=== PATIENT | male | born 1955 | race Two or more races ===

== ENCOUNTER 2022-02-07 17:27 | Emergency (ER) | payer OTHER ==
[~2022-02-07] VITALS: Ht 167.6 cm; Wt 99.8 kg
[2022-02-07 20:38] LABS: Basophils # (auto) 0.1 10 ^3/uL (0-0.2); Basophils % (auto) 1.7 % (0.0-2.0); Eosinophils # (auto) 0.3 10 ^3/uL (0-0.8); Eosinophils % (auto) 4.9 % (0.0-7.0); Hematocrit 38.9 % (41.0-53.0); Hemoglobin 12.5 g/dL (13.5-17.5); Lymphocytes # (auto) 1.2 10 ^3/uL (0.4-5.4); Lymphocytes % (auto) 21.5 % (10.0-50.0); Mean Corpuscular Hemoglobin 30.5 pg (28.0-32.0); Mean Corpuscular Hgb Conc. 32.1 g/dL (32.0-36.0); Mean Corpuscular Volume 94.9 fL (80.0-100.0); Monocytes # (auto) 0.5 10 ^3/uL (0-1.3); Monocytes % (auto) 9.3 % (0.0-12.0); Neutrophils # (auto) 3.6 10 ^3/uL (1.6-8.6); Neutrophils % (auto) 62.6 % (37.0-80.0); Red Blood Cells 4.09 10^6/uL (4.5-5.90); Red Cell Distribution Width 14.6 % (11.8-14.3); White Blood Cell 5.7 10^3/uL (4.4-10.8)
[2022-02-07 20:47] LABS: Albumin 3.7 g/dL (3.4-5.0); Calcium 8.6 mg/dL (8.5-10.1); Potassium 5.1 mmol/L (3.5-5.1)
[2022-02-07 20:50] LABS: BUN/Creatinine Ratio 6.3; Bilirubin, Total 0.5 mg/dL (0.2-1.0); CRP High Sensitivity 0.16 mg/dL (< 0.3); Total Protein 7.6 g/dL (6.4-8.2)
[2022-02-07] MEDS ORDERED: HYDR-4902 PO (21:34)
[2022-02-07 23:39] VITALS: BP 132/67
== END 2022-02-07 23:57 | disposition home or self-care (01) ==
LOC: ER 17:27 → EDBD 17:27 → ER 23:57
DX: R58 Hemorrhage, not elsewhere classified (principal); I12.0 Hypertensive chronic kidney disease with stage 5 chronic kidney disease or end stage renal disease; N18.6 End stage renal disease; Z99.2 Dependence on renal dialysis; Z79.899 Other long term (current) drug therapy
CPT/HCPCS: 36415; 73130; 80053; 85025; 86141

== ENCOUNTER 2023-08-05 15:24 | Inpatient (IN) | payer MEDICARE, MEDICAID ==
[~2023-08-05] VITALS: Ht 162.6 cm; Wt 102.4 kg
[~2023-08-05 15:24] MED LIST: HYDR-4902 PO
[2023-08-05 17:03] LABS: Basophils # (auto) 0.1 10 ^3/uL (0-0.2); Basophils % (auto) 0.9 % (0.0-2.0); Eosinophils # (auto) 0.2 10 ^3/uL (0-0.8); Eosinophils % (auto) 3.9 % (0.0-7.0); Hematocrit 34.6 % (41.0-53.0); Hemoglobin 11.1 g/dL (13.5-17.5); Lymphocytes # (auto) 0.8 10 ^3/uL (0.4-5.4); Lymphocytes % (auto) 12.4 % (10.0-50.0); Mean Corpuscular Hemoglobin 30.6 pg (28.0-32.0); Mean Corpuscular Volume 95.5 fL (80.0-100.0); Monocytes # (auto) 0.6 10 ^3/uL (0-1.3); Neutrophils # (auto) 4.6 10 ^3/uL (1.6-8.6); Neutrophils % (auto) 72.8 % (37.0-80.0); Nucleated Red Blood Cells % 0.1 %; Red Blood Cells 3.63 10^6/uL (4.5-5.90); Red Cell Distribution Width 14.6 % (11.8-14.3); White Blood Cell 6.3 10^3/uL (4.4-10.8)
[2023-08-05] MEDS ORDERED: VANCOMYCIN 1GM/200ML 250 ML IV ONE (17:45)
[2023-08-05] MEDS ORDERED: PIPERACILLIN-TAZOB 3.375GM 100 ML IV ONE ×2 (17:45→19:30)
[2023-08-05 17:58] LABS: Alanine Aminotransferase 15 U/L (7-40); Alkaline Phosphatase 122 U/L (46-116); Anion Gap 12 (5-15); Aspartate Aminotransferase 24 U/L (13-40); BUN/Creatinine Ratio 7.7 (10.0-20.0); Blood Urea Nitrogen 35 mg/dL (9-23); Calcium 8.7 mg/dL (8.5-10.1); Carbon Dioxide 26 mmol/L (20-30); Chloride 101 mmol/L (98-107); Glucose 190 mg/dL (74-106); Potassium 3.7 mmol/L (3.5-5.1); Sodium 139 mmol/L (136-145)
[2023-08-05 17:59] LABS: Albumin 4.4 g/dL (3.2-4.8); Total Protein 7.6 g/dL (5.7-8.2)
[2023-08-05 18:16] LABS: Erythrocyte Sedimentation Rate 29 mm/hr (0-20)
[2023-08-05] MEDS ORDERED: SODIUM CHLORIDE 0.9% 1,000 ML IV ONE (19:00)
[2023-08-05] MEDS ORDERED: ONDANSETRON HCL 4 MG/2 ML VIAL IV PRN (20:15)
[2023-08-05] MEDS ORDERED: VANCOMYCIN PER PHARMACY 0 MG IV SCH (20:15)
[2023-08-05] MEDS ORDERED: DOCUSATE SOD 100 MG CAP PO PRN (20:15)
[2023-08-05] MEDS ORDERED: DEXTROSE (50%) 50ML SYRG IV PRN (20:15)
[2023-08-05] MEDS ORDERED: CEFEPIME 2GM/50ML NS 50 ML IV ONE ×2 (21:30)
[2023-08-05] MEDS ORDERED: VANCOMYCIN 1GM/200ML 200 ML IV ONE (22:30)
[2023-08-06] MEDS: InsuLIN REG 1unit/0.01ml Soln (100units/ml) SC SCH ×5 (00:48→21:32)
[2023-08-06] MEDS: ACCU-CHEK COMFORT CURVE STRIP VI SCH ×5 (00:48→21:32)
[2023-08-06] MEDS: SODIUM CHLORIDE 0.9% 1,000 ML IV SCH ×4 (02:55→21:15)
[2023-08-06] MEDS: MORPHINE SULFATE INJ 2 MG/ml SYRG IV PRN ×3 (05:28→18:20)
[2023-08-06 06:08] LABS: Basophils # (auto) 0.1 10 ^3/uL (0-0.2); Eosinophils # (auto) 0.3 10 ^3/uL (0-0.8); Eosinophils % (auto) 4.9 % (0.0-7.0); Hematocrit 31.4 % (41.0-53.0); Lymphocytes # (auto) 0.7 10 ^3/uL (0.4-5.4); Lymphocytes % (auto) 14.1 % (10.0-50.0); Mean Corpuscular Hgb Conc. 31.8 g/dL (32.0-36.0); Mean Corpuscular Volume 94.4 fL (80.0-100.0); Monocytes # (auto) 0.5 10 ^3/uL (0-1.3); Neutrophils # (auto) 3.7 10 ^3/uL (1.6-8.6); Nucleated Red Blood Cells % 0.1 %; Red Blood Cells 3.33 10^6/uL (4.5-5.90); Red Cell Distribution Width 14.2 % (11.8-14.3); White Blood Cell 5.2 10^3/uL (4.4-10.8)
[2023-08-06 06:22] LABS: Alanine Aminotransferase 14 U/L (7-40); Albumin 3.9 g/dL (3.2-4.8); Alkaline Phosphatase 112 U/L (46-116); Anion Gap 14 (5-15); Aspartate Aminotransferase 20 U/L (13-40); BUN/Creatinine Ratio 8.9 (10.0-20.0); Blood Urea Nitrogen 44 mg/dL (9-23); Carbon Dioxide 22 mmol/L (20-30); Chloride 105 mmol/L (98-107); Glucose 180 mg/dL (74-106); Potassium 3.7 mmol/L (3.5-5.1); Sodium 141 mmol/L (136-145)
[2023-08-06 06:23] LABS: Bilirubin, Total 0.9 mg/dL (0.2-1.0); Total Protein 6.7 g/dL (5.7-8.2)
[2023-08-06] MEDS: CEFEPIME 2GM/50ML NS 50 ML IV SCH ×3 (08:10→21:32)
[2023-08-06] MEDS: ENOXAPARIN SOD 30 MG/0.3 ML SYRINGE SC SCH (10:07)
[2023-08-06 10:48] VITALS: BP 150/61; PULSE 65; RESP 18; TEMP 98; O2SAT 98
[2023-08-06 11:52] LABS: Phosphorus 2.8 mg/dL (2.4-5.1)
[2023-08-06 12:18] VITALS: BP 150/61; PULSE 65; RESP 18; TEMP 98
[2023-08-06 12:32] VITALS: PULSE 65; RESP 18; O2SAT 98
[2023-08-06 16:59] VITALS: BP 140/65; PULSE 58; RESP 20; TEMP 98.1; O2SAT 98
[2023-08-06 17:33] LABS: Amphetamine Screen, Urine Neg (NEGATIVE); Barbiturate Scree,Urine Neg (NEGATIVE); Benzodiazephine Screen, Urine Neg (NEGATIVE); Cocaine Screen, Urine Neg (NEGATIVE); Opiate Scree,Urine Neg (NEGATIVE); Phencyclidine Screen, Urine Neg (NEGATIVE)
[2023-08-06 17:34] LABS: Cannabinoid Screen, Urine Neg (NEGATIVE); Creatinine, Urine 103.78 mg/dL (30.0-125.0)
[2023-08-06 20:00] VITALS: PULSE 62; RESP 16; O2SAT 99
[2023-08-07] VITALS (7 sets, daily range): BP systolic 106–158; BP diastolic 46–70; PULSE 54–106; RESP 15–18; TEMP 97.5–98.4; O2SAT 95–100
[2023-08-07] MEDS: MORPHINE SULFATE INJ 2 MG/ml SYRG IV PRN ×2 (00:23→09:17)
[2023-08-07] MEDS: SODIUM CHLORIDE 0.9% 1,000 ML IV SCH ×3 (05:35→22:15)
[2023-08-07 06:09] LABS: Hematocrit 30.3 % (41.0-53.0); Hemoglobin 9.8 g/dL (13.5-17.5)
[2023-08-07] MEDS: CEFEPIME 2GM/50ML NS 50 ML IV SCH (06:10)
[2023-08-07] MEDS: ACCU-CHEK COMFORT CURVE STRIP VI SCH ×4 (06:15→22:00)
[2023-08-07] MEDS: InsuLIN REG 1unit/0.01ml Soln (100units/ml) SC SCH ×4 (06:15→22:00)
[2023-08-07 06:26] LABS: Chloride 105 mmol/L (98-107); Potassium 4.7 mmol/L (3.5-5.1); Sodium 139 mmol/L (136-145)
[2023-08-07 06:27] LABS: Anion Gap 13 (5-15); Calcium 8.1 mg/dL (8.5-10.1); Carbon Dioxide 21 mmol/L (20-30)
[2023-08-07 06:32] LABS: BUN/Creatinine Ratio 11.3 (10.0-20.0); Glucose 108 mg/dL (74-106)
[2023-08-07 06:33] LABS: Blood Urea Nitrogen 64 mg/dL (9-23)
[2023-08-07] MEDS ORDERED: SODIUM CHL 0.9% 1000 ML BAG XX ONE (07:00)
[2023-08-07] MEDS: ENOXAPARIN SOD 30 MG/0.3 ML SYRINGE SC SCH (09:17)
[2023-08-07] MEDS ORDERED: VANCOMYCIN 500 MG in D5W 5% 100 ML IV ONE (13:00)
[2023-08-07 14:18] LABS: INR 1.21 (0.9-1.15); Prothrombin Time 12.5 sec (9.3-11.8)
[2023-08-07] MEDS ORDERED: EPOETIN ALFA-EPBX 4,000 UNIT/ML VIAL SC ONE (21:00)
[2023-08-08] VITALS (7 sets, daily range): BP systolic 114–143; BP diastolic 56–69; PULSE 62–75; RESP 14–20; TEMP 97.7–98.2; O2SAT 93–98
[2023-08-08] MEDS: MORPHINE SULFATE INJ 2 MG/ml SYRG IV PRN ×3 (00:28→23:20)
[2023-08-08] MEDS: SODIUM CHLORIDE 0.9% 1,000 ML IV SCH ×3 (05:48→23:15)
[2023-08-08] MEDS: ACCU-CHEK COMFORT CURVE STRIP VI SCH ×4 (06:56→22:00)
[2023-08-08] MEDS: InsuLIN REG 1unit/0.01ml Soln (100units/ml) SC SCH ×4 (06:56→22:42)
[2023-08-08] MEDS: ENOXAPARIN SOD 30 MG/0.3 ML SYRINGE SC SCH (10:16)
[2023-08-08] MEDS: CEFEPIME 2GM/50ML NS 50 ML IV SCH (10:17)
[2023-08-08] MEDS ORDERED: VANCOMYCIN 1GM/200ML 200 ML IV ONE (15:00)
[2023-08-09] MEDS: ACCU-CHEK COMFORT CURVE STRIP VI SCH ×4 (05:04→22:00)
[2023-08-09] MEDS: InsuLIN REG 1unit/0.01ml Soln (100units/ml) SC SCH ×4 (05:04→22:39)
[2023-08-09 05:15] VITALS: BP 118/59; PULSE 69; RESP 20; TEMP 98.5; O2SAT 93
[2023-08-09 06:58] LABS: Chloride 102 mmol/L (98-107); Potassium 5.5 mmol/L (3.5-5.1); Sodium 135 mmol/L (136-145)
[2023-08-09 06:59] LABS: Anion Gap 11 (5-15); Carbon Dioxide 22 mmol/L (20-30)
[2023-08-09 07:05] LABS: BUN/Creatinine Ratio 9.2 (10.0-20.0); Blood Urea Nitrogen 56 mg/dL (9-23); Glucose 104 mg/dL (74-106)
[2023-08-09] MEDS: SODIUM CHLORIDE 0.9% 1,000 ML IV SCH ×2 (07:35→15:55)
[2023-08-09 08:00] VITALS: BP 132/60; PULSE 62; PULSE 70; RESP 14; RESP 18; TEMP 98; O2SAT 98
[2023-08-09 09:00] VITALS: BP 110/64; PULSE 64; RESP 18; TEMP 97.5; O2SAT 98
[2023-08-09] MEDS: CEFEPIME 2GM/50ML NS 50 ML IV SCH (10:18)
[2023-08-09] MEDS: ENOXAPARIN SOD 30 MG/0.3 ML SYRINGE SC SCH (10:18)
[2023-08-09] MEDS: MORPHINE SULFATE INJ 2 MG/ml SYRG IV PRN ×2 (11:14→23:01)
[2023-08-09 13:00] VITALS: BP 131/64; PULSE 74; RESP 18; TEMP 98.3; O2SAT 96
[2023-08-09 16:56] VITALS: BP 128/76; PULSE 73; RESP 20; TEMP 97.8; O2SAT 95
[2023-08-09] MEDS ORDERED: DONE5TAB80 PO (20:31)
[2023-08-09] MEDS ORDERED: AMLO1TAB22 PO (20:32)
[2023-08-09] MEDS ORDERED: SEVE800T8 PO (20:33)
[2023-08-09] MEDS ORDERED: APIX5TAB PO (20:34)
[2023-08-09] MEDS ORDERED: FURO20TA3 PO (20:39)
[2023-08-09] MEDS ORDERED: ATOR20TA50 PO (20:49)
[2023-08-09] MEDS ORDERED: BRIM0.2S2 OP (21:02)
[2023-08-09] MEDS ORDERED: DORZ2SOL18 EACHEYE (21:04)
[2023-08-09] MEDS ORDERED: LATA0.008 EACHEYE (21:15)
[2023-08-09 22:00] VITALS: BP 137/64; PULSE 68; RESP 19; TEMP 97.3; O2SAT 98
[2023-08-10] MEDS: SODIUM CHLORIDE 0.9% 1,000 ML IV SCH ×2 (00:15→08:35)
[2023-08-10 05:00] VITALS: BP 128/70; PULSE 62; RESP 17; TEMP 97.4; O2SAT 92
[2023-08-10 06:30] LABS: Basophils # (auto) 0.1 10 ^3/uL (0-0.2); Basophils % (auto) 1.3 % (0.0-2.0); Eosinophils # (auto) 0.4 10 ^3/uL (0-0.8); Eosinophils % (auto) 7.3 % (0.0-7.0); Hematocrit 28.6 % (41.0-53.0); Hemoglobin 9.4 g/dL (13.5-17.5); Lymphocytes # (auto) 0.5 10 ^3/uL (0.4-5.4); Mean Corpuscular Hemoglobin 31.4 pg (28.0-32.0); Mean Corpuscular Hgb Conc. 32.8 g/dL (32.0-36.0); Mean Corpuscular Volume 95.6 fL (80.0-100.0); Monocytes # (auto) 0.6 10 ^3/uL (0-1.3); Monocytes % (auto) 12.8 % (0.0-12.0); Neutrophils # (auto) 3.4 10 ^3/uL (1.6-8.6); Neutrophils % (auto) 68.6 % (37.0-80.0); Red Blood Cells 2.99 10^6/uL (4.5-5.90); Red Cell Distribution Width 14.3 % (11.8-14.3)
[2023-08-10 06:39] LABS: Alkaline Phosphatase 79 U/L (46-116); Anion Gap 10 (5-15); BUN/Creatinine Ratio 9.4 (10.0-20.0); Blood Urea Nitrogen 48 mg/dL (9-23); Carbon Dioxide 26 mmol/L (20-30); Chloride 100 mmol/L (98-107); Glucose 118 mg/dL (74-106); Potassium 4.7 mmol/L (3.5-5.1); Sodium 136 mmol/L (136-145)
[2023-08-10 06:40] LABS: Albumin 3.8 g/dL (3.2-4.8); Aspartate Aminotransferase 13 U/L (13-40); Bilirubin, Total 0.9 mg/dL (0.2-1.0); Total Protein 6.8 g/dL (5.7-8.2)
[2023-08-10 06:49] LABS: Alanine Aminotransferase < 9 U/L (7-40)
[2023-08-10] MEDS: InsuLIN REG 1unit/0.01ml Soln (100units/ml) SC SCH ×4 (07:00→22:00)
[2023-08-10] MEDS: ACCU-CHEK COMFORT CURVE STRIP VI SCH ×4 (08:18→22:48)
[2023-08-10 08:44] VITALS: BP 138/54; PULSE 67; RESP 17; TEMP 98; O2SAT 96
[2023-08-10] MEDS: CEFEPIME 2GM/50ML NS 50 ML IV SCH (08:49)
[2023-08-10] MEDS: ENOXAPARIN SOD 30 MG/0.3 ML SYRINGE SC SCH (08:49)
[2023-08-10] MEDS: MORPHINE SULFATE INJ 2 MG/ml SYRG IV PRN ×2 (08:49→22:37)
[2023-08-10 12:45] VITALS: BP 126/54; PULSE 62; RESP 15; TEMP 97.8; O2SAT 97
[2023-08-10] MEDS: HEPARIN SODIUM (PORCINE) 5000 UNITS/ML 1ML VIAL SC SCH ×2 (14:26→22:32)
[2023-08-10] MEDS: FUROSEMIDE 20 MG TAB PO SCH ×2 (14:26→22:39)
[2023-08-10] MEDS: SEVELAMER 800 MG TAB PO SCH ×2 (14:26→18:00)
[2023-08-10 16:44] VITALS: BP 133/62; PULSE 66; RESP 16; TEMP 98.2; O2SAT 97
[2023-08-10] MEDS: LATANOPROST 0.005 % OPTH(EYE) SOL 2.5ML EACHEYE SCH (18:00)
[2023-08-10 20:00] VITALS: BP 129/66; PULSE 63; RESP 18; TEMP 97.8; O2SAT 96
[2023-08-10 22:00] VITALS: BP 140/80; PULSE 57; RESP 18; TEMP 97.8; O2SAT 97
[2023-08-10] MEDS: DORZOLAM-TIMOLOL(2/0.5%) OPTH(EYE) SOLN 10ML EACHEYE SCH (22:00)
[2023-08-10] MEDS: DONEPEZIL HYDROCHLORIDE 5 MG TAB PO SCH (22:41)
[2023-08-11] VITALS (7 sets, daily range): BP systolic 102–147; BP diastolic 57–75; PULSE 60–67; RESP 14–18; TEMP 97.2–98.1; O2SAT 96–99
[2023-08-11] MEDS: FUROSEMIDE 20 MG TAB PO SCH ×3 (06:00→21:02)
[2023-08-11] MEDS: HEPARIN SODIUM (PORCINE) 5000 UNITS/ML 1ML VIAL SC SCH ×3 (06:31→21:14)
[2023-08-11] MEDS: InsuLIN REG 1unit/0.01ml Soln (100units/ml) SC SCH ×2 (06:32→11:30)
[2023-08-11] MEDS: ACCU-CHEK COMFORT CURVE STRIP VI SCH ×2 (06:32→11:40)
[2023-08-11] MEDS ORDERED: SODIUM CHL 0.9% 1000 ML BAG XX ONE (07:00)
[2023-08-11] MEDS: SEVELAMER 800 MG TAB PO SCH ×3 (07:56→21:01)
[2023-08-11] MEDS: DORZOLAM-TIMOLOL(2/0.5%) OPTH(EYE) SOLN 10ML EACHEYE SCH ×2 (10:00→22:00)
[2023-08-11] MEDS: ATORVASTATIN 20 MG TAB PO SCH (10:48)
[2023-08-11] MEDS: CEFEPIME 2GM/50ML NS 50 ML IV SCH (10:48)
[2023-08-11] MEDS: PANTOPRAZOLE 40 MG TAB PO SCH (10:48)
[2023-08-11] MEDS: amLODIPine BESYLATE 5 MG TAB PO SCH (10:48)
[2023-08-11] MEDS: MORPHINE SULFATE INJ 2 MG/ml SYRG IV PRN ×2 (12:23→21:05)
[2023-08-11] MEDS: LATANOPROST 0.005 % OPTH(EYE) SOL 2.5ML EACHEYE SCH (18:00)
[2023-08-11] MEDS ORDERED: EPOETIN ALFA-EPBX 4,000 UNIT/ML VIAL SC ONE (21:00)
[2023-08-11] MEDS: DONEPEZIL HYDROCHLORIDE 5 MG TAB PO SCH (21:01)
[2023-08-12] VITALS (7 sets, daily range): BP systolic 96–132; BP diastolic 57–67; PULSE 52–76; RESP 14–19; TEMP 97.3–97.7; O2SAT 92–98
[2023-08-12] MEDS: MORPHINE SULFATE INJ 2 MG/ml SYRG IV PRN ×4 (03:36→21:13)
[2023-08-12] MEDS: FUROSEMIDE 20 MG TAB PO SCH ×3 (06:25→21:10)
[2023-08-12] MEDS: HEPARIN SODIUM (PORCINE) 5000 UNITS/ML 1ML VIAL SC SCH ×3 (06:31→21:21)
[2023-08-12] MEDS: SEVELAMER 800 MG TAB PO SCH ×3 (08:04→18:03)
[2023-08-12] MEDS: DORZOLAM-TIMOLOL(2/0.5%) OPTH(EYE) SOLN 10ML EACHEYE SCH ×2 (09:40→22:00)
[2023-08-12] MEDS ORDERED: levoFLOXacin 500 MG TAB PO ONE ×2 (10:00→11:00)
[2023-08-12] MEDS ORDERED: levoFLOXacin 250 MG TAB PO ONE (10:00)
[2023-08-12] MEDS: CEFEPIME 2GM/50ML NS 50 ML IV SCH (10:33)
[2023-08-12] MEDS: amLODIPine BESYLATE 5 MG TAB PO SCH (10:34)
[2023-08-12] MEDS: PANTOPRAZOLE 40 MG TAB PO SCH (10:34)
[2023-08-12] MEDS: ATORVASTATIN 20 MG TAB PO SCH (10:34)
[2023-08-12] MEDS ORDERED: VANCOMYCIN 500 MG in D5W 5% 100 ML IV ONE (15:00)
[2023-08-12] MEDS: LATANOPROST 0.005 % OPTH(EYE) SOL 2.5ML EACHEYE SCH (17:40)
[2023-08-12] MEDS: DONEPEZIL HYDROCHLORIDE 5 MG TAB PO SCH (21:08)
[2023-08-13 05:00] VITALS: BP 132/77; PULSE 63; RESP 18; TEMP 97.6; O2SAT 97
[2023-08-13] MEDS: HEPARIN SODIUM (PORCINE) 5000 UNITS/ML 1ML VIAL SC SCH (05:12)
[2023-08-13] MEDS: FUROSEMIDE 20 MG TAB PO SCH (05:13)
[2023-08-13] MEDS: SEVELAMER 800 MG TAB PO SCH ×2 (07:59→12:25)
[2023-08-13 08:08] VITALS: PULSE 60; RESP 14; O2SAT 98
[2023-08-13 09:00] VITALS: BP 125/60; PULSE 63; RESP 18
[2023-08-13] MEDS: DORZOLAM-TIMOLOL(2/0.5%) OPTH(EYE) SOLN 10ML EACHEYE SCH (09:59)
[2023-08-13] MEDS: CEFEPIME 2GM/50ML NS 50 ML IV SCH (09:59)
[2023-08-13] MEDS: amLODIPine BESYLATE 5 MG TAB PO SCH (10:00)
[2023-08-13] MEDS: PANTOPRAZOLE 40 MG TAB PO SCH (10:00)
[2023-08-13] MEDS: ATORVASTATIN 20 MG TAB PO SCH (10:00)
[2023-08-13] MEDS ORDERED: EPOETIN ALFA-EPBX 4,000 UNIT/ML VIAL IV ONE (10:15)
[2023-08-13 11:02] VITALS: BP 120/56; TEMP 36.4
[2023-08-13 12:00] VITALS: BP 122/58; PULSE 66; RESP 18; TEMP 97.7; O2SAT 97
[2023-08-13 12:25] VITALS: BP 122/58; PULSE 66; RESP 18
[2023-08-13] MEDS: MORPHINE SULFATE INJ 2 MG/ml SYRG IV PRN (12:25)
[2023-08-14] MEDS ORDERED: levoFLOXacin 250 MG TAB PO SCH (10:00)
== END 2023-08-13 13:00 | DRG 602 ==
LOC: ER 15:24 → OVERFLOW 20:20 → CENTRAL 08-06 11:06 → TELE-EAST 08-07 18:26 → EAST 08-07 23:55
PROVIDERS: ADMIT Internal Medicine; ATTEND Nurse Practitioner
DX: L03.115 Cellulitis of right lower limb (principal); N18.6 End stage renal disease; N17.9 Acute kidney failure, unspecified; I12.0 Hypertensive chronic kidney disease with stage 5 chronic kidney disease or end stage renal disease; E11.621 Type 2 diabetes mellitus with foot ulcer; L02.415 Cutaneous abscess of right lower limb; S81.801A Unspecified open wound, right lower leg, initial encounter; D63.1 Anemia in chronic kidney disease; E11.22 Type 2 diabetes mellitus with diabetic chronic kidney disease; E11.610 Type 2 diabetes mellitus with diabetic neuropathic arthropathy; E66.9 Obesity, unspecified; Z96.653 Presence of artificial knee joint, bilateral; E87.5 Hyperkalemia; L03.116 Cellulitis of left lower limb; H40.9 Unspecified glaucoma; R79.82 Elevated C-reactive protein (CRP); F03.90 Unspecified dementia, unspecified severity, without behavioral disturbance, psychotic disturbance, mood disturbance, and anxiety; L97.519 Non-pressure chronic ulcer of other part of right foot with unspecified severity; L97.529 Non-pressure chronic ulcer of other part of left foot with unspecified severity; Z99.2 Dependence on renal dialysis; Z89.519 Acquired absence of unspecified leg below knee; Z68.39 Body mass index [BMI] 39.0-39.9, adult; Z83.3 Family history of diabetes mellitus; Z86.14 Personal history of Methicillin resistant Staphylococcus aureus infection; Z88.1 Allergy status to other antibiotic agents; S81.802A Unspecified open wound, left lower leg, initial encounter; X58.XXXA Exposure to other specified factors, initial encounter; Y93.89 Activity, other specified; Y92.89 Other specified places as the place of occurrence of the external cause; Y99.8 Other external cause status
CPT/HCPCS: 36415; 71045; 73700; 73718; 76881; 80048; 80053; 80202; 80307; 82306; 82565; 82570; 82962; 83036; 83605; 83735; 83880; 83970; 84100; 84300; 85014; 85018; 85025; 85610; 85652; 86141; 86850; 86900; 86901; 87040; 87081; 87340; 90935; 93926; 93970; G0378; J0692; J1815; J2543; J7060